=== PATIENT | female | born 1955 | race Caucasian/White ===

== ENCOUNTER 2016-10-17 02:37 | Observation (INO) | payer OTHER ==
[~2016-10-17] VITALS: Ht 165.1 cm; Wt 94.6 kg
[~2016-10-17 02:37] MED LIST: ADVAIR 250-501 EACH IH; ATORVASTATIN CA80 MG PO; BAYER CHEWABLE81 MG PO; CILOSTAZOL100 MG PO; DELTASONE20 M1 PO; EFFEXOR XR150 MG PO; ERYTHROMYCIN O3.5 GM TP; Ecotrin PO; Effexor XR PO; FAMOTIDINE20 M1 PO; HYDROCHLOROTH12.5 M3 PO; HYDROXYZINE HCL25 M1 PO; HYDROXYZINE HCL50 MG PO; IBUPROFEN600 MG PO; JANUMET 50/11 TABLET PO; LISINOPRIL10 MG PO; LOPRESSOR25 MG PO; METFORMIN HCL500 MG PO; NITROSTAT,NITR0.4 M1 SL; OMEPRAZOLE20 MG PO; PEPCID20 MG PO; PLAVIX75 MG PO; PRAVACHOL40 MG PO; PRINIVIL40 MG PO; Pepcid PO; Pradaxa PO; SIMVASTATIN40 MG PO
[2016-10-17 03:24] LABS: BASOPHIL COUNT 0.1 K/uL (0-0.1); EOSINOPHIL (%) 1.8 % (0-5); EOSINOPHIL COUNT 0.2 K/uL (0-0.3); HEMATOCRIT 40.2 % (36.0-46.0); IMMATURE GRANULOCYTE (%) 0.1 % (0.0-0.7); IMMATURE GRANULOCYTE COUNT 0.1 K/uL; LYMPHOCYTE COUNT 2.1 K/uL (1.0-2.8); MCHC 32.6 G/DL (30.0-36.0); MCV 85.9 FL (83-99); MEAN PLAT.VOLUME 11.4 uM^3 (9.5-12.4); MONOCYTE (%) 8.4 % (3-12); MONOCYTE COUNT 0.9 K/uL (0-0.8); NEUTROPHIL COUNT 7.1 K/uL (1.8-6.4); PLATELET COUNT 196 K/uL (156-360); RBC DIS.WIDTH-CV 13.7 % (11.8-14.6); RBC DIS.WIDTH-SD 42.2 % (39-53); RED BLOOD COUNT 4.68 M/uL (3.80-5.20); WHITE BLOOD COUNT 10.2 K/uL (4.1-10.2)
[2016-10-17 03:34] LABS: CHLORIDE 108 mEq/L (99-109); POTASSIUM 4.1 mEq/L (3.7-5.4); SODIUM 144 mEq/L (136-147)
[2016-10-17 03:36] LABS: GLUCOSE 150 mg/dL (70-99)
[2016-10-17 03:38] LABS: ANION GAP 13 MEQ/L (2-14)
[2016-10-17 03:40] LABS: GFR ESTIMATE (CALCULATED) > 59 mL/min/
[2016-10-17 03:41] LABS: UREA NITROGEN (BUN) 14 mg/dL (9-23)
[2016-10-17 03:46] LABS: TROP-I INTERPRETATION NEGATIVE; TROPONIN-I < 0.01 ng/mL (0.0-0.30)
[2016-10-17] MEDS ORDERED: ADVAIR 500/501 DISK IH (04:45)
[2016-10-17] MEDS ORDERED: ATROVENT H200 INHALA IH (04:46)
[2016-10-17] MEDS ORDERED: ALBUTEROL2.5 MG/3 M IH (04:46)
[2016-10-17] MEDS ORDERED: LYRICA25 MG PO (04:48)
[2016-10-17] MEDS ORDERED: PROAIR RESPICL90 MCG IH (04:50)
[2016-10-17] MEDS ORDERED: PRAVASTATIN SOD20 MG PO (04:50)
[2016-10-17] MEDS ORDERED: TRAMADOL HCL50 MG PO (04:51)
[2016-10-17 07:15] LABS: POINT-OF-CARE METER ID UU14100415
[2016-10-17 10:24] LABS: TROP-I INTERPRETATION NEGATIVE; TROPONIN-I < 0.01 ng/mL (0.0-0.30)
[2016-10-17 10:26] LABS: HDL CHOLESTEROL 38 MG/DL (Desirable>=50); LDL CHOLESTEROL 53 mg/dL (Desirable<100); NON-HDL CHOLESTEROL 67 mg/dL (Desirable<160); TOTAL CHOLESTEROL 105 mg/dL (Desirable<200); TRIGLYCERIDES 72 MG/DL (Normal: <150)
[2016-10-17 10:37] LABS: Estimated Average Glucose 146 mg/dL (70-123); HEMOGLOBIN A1c (GLYCOHEMOGLOB) 6.7 % HGB (Below 5.7)
[2016-10-17 11:44] LABS: POINT-OF-CARE METER ID UU14100415
[2016-10-17] MEDS ORDERED: ATARAX,VISTARIL25 MG PO (12:36)
[2016-10-17 16:27] LABS: POINT-OF-CARE METER ID UU14100415
[2016-10-17 16:38] LABS: TROP-I INTERPRETATION NEGATIVE; TROPONIN-I < 0.01 ng/mL (0.0-0.30)
[2016-10-17 20:38] VITALS: BP 112/57
[2016-10-18 01:00] VITALS: BP 97/54
[2016-10-18 04:24] VITALS: BP 100/56
[2016-10-18 05:50] LABS: TROP-I INTERPRETATION NEGATIVE; TROPONIN-I < 0.01 ng/mL (0.0-0.30)
[2016-10-18 08:07] LABS: POINT-OF-CARE METER ID UU14162513
[2016-10-18 08:15] VITALS: BP 117/59
[2016-10-18 12:06] LABS: POINT-OF-CARE METER ID UU14162513
[2016-10-18 12:26] VITALS: BP 110/57
== END 2016-10-18 15:41 | disposition home or self-care (01) ==
LOC: EME → EDBD 02:37 → EDOF 04:06 → 5WEST 20:00
PROVIDERS: Emergency Medicine; Hospitalist; Internal Medicine; Physician Assistant Medical
DX: R07.89 Other chest pain (principal); I25.10 Atherosclerotic heart disease of native coronary artery without angina pectoris; I70.211 Atherosclerosis of native arteries of extremities with intermittent claudication, right leg; I10 Essential (primary) hypertension; E78.5 Hyperlipidemia, unspecified; J44.9 Chronic obstructive pulmonary disease, unspecified; I25.2 Old myocardial infarction; Z95.1 Presence of aortocoronary bypass graft; Z95.820 Peripheral vascular angioplasty status with implants and grafts; Z87.891 Personal history of nicotine dependence; I25.5 Ischemic cardiomyopathy; E66.9 Obesity, unspecified; Z68.35 Body mass index [BMI] 35.0-35.9, adult; K21.9 Gastro-esophageal reflux disease without esophagitis; F41.3 Other mixed anxiety disorders; M54.5 Low back pain; G89.29 Other chronic pain; Z82.49 Family history of ischemic heart disease and other diseases of the circulatory system
CPT/HCPCS: 71010; 80048; 80061; 82948; 83036; 84484; 85025; 93005; 94640; 94640 76; 99202; 99281; 99285; G0378; J1650; J1815; Q0177

== ENCOUNTER 2016-10-31 21:42 | Observation (INO) | payer OTHER ==
[~2016-10-31] VITALS: Ht 165.1 cm; Wt 96.0 kg
[~2016-10-31 21:42] MED LIST changes: +ADVAIR 500/501 DISK IH; +ALBUTEROL2.5 MG/3 M IH; +ATARAX,VISTARIL25 MG PO; +ATROVENT H200 INHALA IH; +LYRICA25 MG PO; +PRAVASTATIN SOD20 MG PO; +PROAIR RESPICL90 MCG IH; +TRAMADOL HCL50 MG PO
[2016-11-01 00:39] LABS: HEMATOCRIT 38.1 % (36.0-46.0); MCH 27.7 PG (29.0-34.0); MCHC 32.5 G/DL (30.0-36.0); MEAN PLAT.VOLUME 10.7 uM^3 (9.5-12.4); PLATELET COUNT 238 K/uL (156-360); RBC DIS.WIDTH-CV 13.8 % (11.8-14.6); RBC DIS.WIDTH-SD 42.2 % (39-53); RED BLOOD COUNT 4.48 M/uL (3.80-5.20)
[2016-11-01 00:52] LABS: CHLORIDE 109 mEq/L (99-109); POTASSIUM 4.8 mEq/L (3.7-5.4); SODIUM 143 mEq/L (136-147)
[2016-11-01 00:53] LABS: GLUCOSE 159 mg/dL (70-99)
[2016-11-01 00:55] LABS: ANION GAP 14 MEQ/L (2-14)
[2016-11-01 00:57] LABS: GFR ESTIMATE (CALCULATED) > 59 mL/min/
[2016-11-01 00:58] LABS: UREA NITROGEN (BUN) 15 mg/dL (9-23)
[2016-11-01 01:06] LABS: TROP-I INTERPRETATION NEGATIVE; TROPONIN-I < 0.01 ng/mL (0.0-0.30)
[2016-11-01 03:24] VITALS: BP 112/55
[2016-11-01 07:20] VITALS: BP 108/63
[2016-11-01] MEDS ORDERED: LOPRESSOR25 MG PO (11:07)
[2016-11-01] MEDS ORDERED: PREDNISONE20 MG PO (11:08)
[2016-11-01] MEDS ORDERED: FAMOTIDINE40 MG PO (11:08)
[2016-11-01] MEDS ORDERED: BENADRYL25 MG PO (11:12)
== END 2016-11-01 12:53 | disposition home or self-care (01) ==
LOC: EME 21:42 → EDOF 11-01 02:02 → 5WEST 11-01 03:02
PROVIDERS: Emergency Medicine
DX: T78.3XXA Angioneurotic edema, initial encounter (principal); E11.9 Type 2 diabetes mellitus without complications; I25.10 Atherosclerotic heart disease of native coronary artery without angina pectoris; I10 Essential (primary) hypertension; F32.9 Major depressive disorder, single episode, unspecified; F41.9 Anxiety disorder, unspecified; J44.9 Chronic obstructive pulmonary disease, unspecified; K21.9 Gastro-esophageal reflux disease without esophagitis; Z88.2 Allergy status to sulfonamides; Z88.8 Allergy status to other drugs, medicaments and biological substances
CPT/HCPCS: 80048; 84484; 85027; 93005; 94640; 94640 76; 99202; 99281; 99284; G0378; J1200; J1650; J2930; J7030; J7512; S0028

== ENCOUNTER 2016-12-21 14:58 | Observation (INO) | payer OTHER ==
[~2016-12-21] VITALS: Ht 162.6 cm; Wt 93.2 kg
[~2016-12-21 14:58] MED LIST changes: +BENADRYL25 MG PO; +FAMOTIDINE40 MG PO; +PREDNISONE20 MG PO
[2016-12-21 16:15] LABS: HEMATOCRIT 43.2 % (36.0-46.0); MCH 27.4 PG (29.0-34.0); MCHC 31.3 G/DL (30.0-36.0); MCV 87.8 FL (83-99); MEAN PLAT.VOLUME 12.1 uM^3 (9.5-12.4); PLATELET COUNT 198 K/uL (156-360); RBC DIS.WIDTH-CV 13.3 % (11.8-14.6); RBC DIS.WIDTH-SD 43.1 % (39-53); RED BLOOD COUNT 4.92 M/uL (3.80-5.20); WHITE BLOOD COUNT 9.1 K/uL (4.1-10.2)
[2016-12-21 16:31] LABS: CHLORIDE 105 mEq/L (99-109); POTASSIUM 4.8 mEq/L (3.7-5.4); SODIUM 142 mEq/L (136-147)
[2016-12-21 16:33] LABS: GLUCOSE 110 mg/dL (70-99)
[2016-12-21 16:35] LABS: ANION GAP 14 MEQ/L (2-14)
[2016-12-21 16:37] LABS: GFR ESTIMATE (CALCULATED) > 59 mL/min/
[2016-12-21 16:38] LABS: UREA NITROGEN (BUN) 16 mg/dL (9-23)
[2016-12-21 16:56] LABS: TROP-I INTERPRETATION NEGATIVE; TROPONIN-I < 0.01 ng/mL (0.0-0.30)
[2016-12-21] MEDS ORDERED: EFFEXOR XR75 MG PO (18:07)
[2016-12-21] MEDS ORDERED: BUSPIRONE HCL7.5 MG PO (18:10)
[2016-12-21] MEDS ORDERED: METOPROLOL TART50 MG PO (18:10)
[2016-12-21] MEDS ORDERED: ATORVASTATIN CA80 MG PO (18:11)
[2016-12-21] MEDS ORDERED: CLARITIN,ALAVAR10 MG PO (18:12)
[2016-12-21 21:32] LABS: TROP-I INTERPRETATION NEGATIVE; TROPONIN-I < 0.01 ng/mL (0.0-0.30)
[2016-12-21 22:05] LABS: POINT-OF-CARE METER ID UU14100415
[2016-12-21 23:34] VITALS: BP 135/80
[2016-12-22 03:05] LABS: TROP-I INTERPRETATION NEGATIVE; TROPONIN-I < 0.01 ng/mL (0.0-0.30)
[2016-12-22 04:38] VITALS: BP 101/52
[2016-12-22 08:04] LABS: POINT-OF-CARE METER ID UU14162513
[2016-12-22 08:09] VITALS: BP 120/70
== END 2016-12-22 10:15 | disposition home or self-care (01) ==
LOC: EME 14:58 → EDOF 19:40 → 5WEST 19:40
PROVIDERS: Internal Medicine; Physician Assistant
DX: R07.89 Other chest pain (principal); I10 Essential (primary) hypertension; E11.9 Type 2 diabetes mellitus without complications; J44.9 Chronic obstructive pulmonary disease, unspecified; F32.9 Major depressive disorder, single episode, unspecified; I25.10 Atherosclerotic heart disease of native coronary artery without angina pectoris; I73.9 Peripheral vascular disease, unspecified; J45.909 Unspecified asthma, uncomplicated; E78.5 Hyperlipidemia, unspecified; F41.9 Anxiety disorder, unspecified; Z87.891 Personal history of nicotine dependence
CPT/HCPCS: 71020; 80048; 82948; 84484; 85027; 93005; 94640; 99202; 99281; 99285; G0378; J1644; J1815; Q0177

== ENCOUNTER 2017-10-08 23:34 | Emergency (ER) | payer OTHER ==
[~2017-10-08] VITALS: Ht 162.6 cm; Wt 83.4 kg
[~2017-10-08 23:34] MED LIST changes: +BUSPIRONE HCL7.5 MG PO; +CLARITIN,ALAVAR10 MG PO; +EFFEXOR XR75 MG PO; +METOPROLOL TART50 MG PO
[2017-10-09] MEDS ORDERED: LEVAQUIN750 MG PO (03:30)
[2017-10-09] MEDS ORDERED: PREDNISONE20 MG PO (03:30)
[2017-10-09] MEDS ORDERED: ALBUTEROL2.5 MG/3 M IH (03:30)
[2017-10-09 03:50] VITALS: BP 106/62
== END 2017-10-09 03:51 | disposition home or self-care (01) ==
LOC: EME 23:34
DX: J20.9 Acute bronchitis, unspecified (principal); J44.1 Chronic obstructive pulmonary disease with (acute) exacerbation; J44.0 Chronic obstructive pulmonary disease with (acute) lower respiratory infection; I10 Essential (primary) hypertension; E78.5 Hyperlipidemia, unspecified; E11.9 Type 2 diabetes mellitus without complications; Z79.84 Long term (current) use of oral hypoglycemic drugs; I25.2 Old myocardial infarction; Z95.1 Presence of aortocoronary bypass graft; Z95.811 Presence of heart assist device; Z90.49 Acquired absence of other specified parts of digestive tract; Z79.82 Long term (current) use of aspirin; Z87.891 Personal history of nicotine dependence
CPT/HCPCS: 71046; J7512